=== PATIENT | female | born 1945 | race Caucasian/White ===

== ENCOUNTER 2020-01-09 15:01 | Outpatient (CLI) | payer MEDICARE, OTHER ==
[2020-01-10 14:08] LABS: SARS-CoV-2 MS2 Positive; SARS-CoV-2 N Gene Negative; SARS-CoV-2 S Gene Negative; SARS-CoV-2 orf1ab Negative
== END 2020-01-09 15:02 | disposition home or self-care (01) ==
LOC: BURLAB 15:01
PROVIDERS: ATTEND Family Medicine
DX: Z11.59 Encounter for screening for other viral diseases (principal)
CPT/HCPCS: 87635; U0003

== ENCOUNTER 2021-04-20 15:15 | Emergency (ER) | payer OTHER, MEDICARE | END 2021-04-20 16:50 | disposition home or self-care (01) | LOC: BURERS 15:15 | DX: S13.4XXA Sprain of ligaments of cervical spine, initial encounter (principal); S16.1XXA Strain of muscle, fascia and tendon at neck level, initial encounter; S39.012A Strain of muscle, fascia and tendon of lower back, initial encounter; K21.9 Gastro-esophageal reflux disease without esophagitis; V89.2XXA Person injured in unspecified motor-vehicle accident, traffic, initial encounter | CPT/HCPCS: 72040 ==

== ENCOUNTER 2021-04-28 16:31 | Outpatient (CLI) | payer MEDICARE | END 2021-04-28 16:32 | disposition home or self-care (01) | LOC: BURRAD 16:31 | PROVIDERS: ATTEND Family Medicine | DX: M25.551 Pain in right hip (principal) ==

== ENCOUNTER 2021-04-29 14:44 | Outpatient (CLI) | payer MEDICARE | END 2021-04-29 14:45 | disposition home or self-care (01) | LOC: BURRAD 14:44 | PROVIDERS: ATTEND Family Medicine | DX: M54.2 Cervicalgia (principal) | CPT/HCPCS: 72050 ==